=== PATIENT | male | born 1965 | race Caucasian/White ===

== ENCOUNTER 2017-01-08 13:36 | Emergency (ER) | payer BC, OTHER ==
[2017-01-08 14:14] VITALS: BP 120/84
[2017-01-08] MEDS ORDERED: Ketorolac 60 MG/2 ML SDV IM ONE (14:39)
--- NOTE | 2017-01-08 14:39 | EDM.PDOC ---
ED HPI GENERAL MEDICAL PROBLEM - General Chief Complaint: Back Pain or Injury Stated Complaint: LOWER BACK PAIN Time Seen by Provider: 01/08/17 14:27 Source of Information: Reports: Patient History Limitations: Reports: No Limitations - History of Present Illness INITIAL COMMENTS - FREE TEXT/NARRATIVE: HISTORY AND PHYSICAL: []51-year-old male presenting with back pain 07/25 History of Present Illness: []Patient history of back pain was had bulging disks at L4-5 and at L5-S1 discs a year ago (May 2016 )1 week ago (12/31)fell on the ice irritating this area He brings with him copy of recent MRI L-spine that was completed at [facility] on January 06, 2017 Results identify vertebral bodies with normal height and alignment no evidence of compression deformity. An ominous osseous mass is not identified L1-L2 normal L2-L3 normal L 3 L4 normal L4-L5: The disc space is moderately narrowed and desiccated. The central canal is obliterated by extruded disc. The neural for amenorrhea are only mildly narrowed by bulging disc L5-S1: The disc space is moderately narrowed and desiccated. Posterior canal, extending to the left lateral recess appreciate a roughly 6 mm disc extrusion which moderately impinges upon the thecal sac. The neural foramina are only mildly narrowed by protruding disc. The cauda equina is present at L1 nerve roots appear unremarkable; I see no evidence of clubbing or a mass. There is no evidence of paraspinal mass abdominal aorta is normal in caliber. Patient denies any difficulty with urination or with bowel movements although states that he is having more difficulty with constipation Review of Systems: As per history of present illness and below otherwise all systems reviewed and negative. Past medical history: As per history of present illness and as reviewed below otherwise noncontributory. Surgical history: As per history of present illness and as reviewed below otherwise noncontributory. Social history: No reported history of drug or alcohol abuse. Family history: As per history of present illness and as reviewed below otherwise noncontributory. Physical exam: Alert and oriented male answering questions in full sentences without any shortness of breath he is obviously uncomfortable. And is requesting a refill of his hydrocodone and some tramadol he has an appointment with Dr. Mariano neurosurgeon at on Wednesday01/11/17 HEENT: Atraumatic, normocehpalic, pupils reactive, negative for conjunctival pallor or scleral icterus, mucous membranes moist, throat clear, neck supple, nontender, trachea midline. Lungs: Clear to auscultation, breath sounds equal bilaterally, chest non tender. Heart: S1S2, regular, negative for clicks, rubs, or JVD. Abdomen: Soft, nondistended, nontender. Negative for masses or hepatossplenmegaly. Negative for costovertebral tenderness. Pelvis: Stable nontender. Genitourinary: Deferred. Rectal: Deferred Extremities: Atraumatic, negative for cords or calf pain. Neurovascular unremarkable. Neuro: Awake, alert, oriented. Cranial nerves II through XII unremarkable. Cerebellum unremarkable. Motor and sensory unremarkable throughout. Exam nonfocal. Diagnostics: [] Therapeutics: [Toradol 60 mg IM] Impression: [Lower back pain with large disc extrusion L4-L5] Plan: [Discharged to home Tramadol can be ordered addition to the hydrocodone that he has. 8 tablets are present in his current prescription. ] Definitive disposition and diagnosis as appropriate pending reevaluation and review of above. Onset: Sudden, Gradual Left Lower Back Pain Score (Numeric/FACES): 8 - Related Data Allergies Allergy/AdvReac Type Severity Reaction Status Date / Time Penicillins Allergy Anaphylactic Verified 01/08/17 14:02 Shock Home Meds: Home Meds Cyclobenzaprine HCl 10 mg PO TID PRN 01/08/17 [History] Diclofenac Sodium [Voltaren] 75 mg PO BIDMEALS 01/08/17 [History] Hydrocodone/Acetaminophen [Hydrocodon-Acetaminophn 10-325] 1 tab PO TID PRN [History] methylPREDNISolone [Medrol] 4 mg PO ASDIRECTED #1 dosepk 01/08/17 [Rx] traMADol HCl [Tramadol HCl] 50 mg PO Q6H PRN #10 tablet 01/08/17 [Rx] Past Medical History HEENT History: Reports: None Cardiovascular History: Reports: None Respiratory History: Reports: None Gastrointestinal History: Reports: None Genitourinary History: Reports: None Musculoskeletal History: Reports: None Neurological History: Reports: None Psychiatric History: Reports: None Endocrine/Metabolic History: Reports: None Hematologic History: Reports: None Immunologic History: Reports: None Oncologic (Cancer) History: Reports: None Dermatologic History: Reports: None - Infectious Disease History Infectious Disease History: Reports: Chicken Pox - Past Surgical History Head Surgeries/Procedures: Reports: None HEENT Surgical History: Reports: Tonsillectomy Dermatological Surgical History: Reports: None Social & Family History - Family History Family Medical History: Noncontributory - Tobacco Use Smoking Status *Q: Current Every Day Smoker Years of Tobacco use: 10 Packs/Tins Daily: 0.5 Used Tobacco, but Quit: No Second Hand Smoke Exposure: Yes - Caffeine Use Caffeine Use: Reports: Coffee Caffeine Use Comment: 5-6 cups avg - Recreational Drug Use Recreational Drug Use: No ED ROS GENERAL - Review of Systems Review Of Systems: ROS reveals no pertinent complaints other than HPI. ED EXAM,LOWER BACK PAIN/INJURY - Physical Exam Exam: See Below (see dictation) Course - Vital Signs Last Recorded V/S: Last Vital Signs Temp 36.1 C 01/08/17 14:07 Pulse 114 H 01/08/17 14:07 Resp 16 01/08/17 14:07 BP 120/84 01/08/17 14:07 Pulse Ox 16 L 01/08/17 14:07 - Orders/Labs/Meds Meds: Medications Discontinued Medications Generic Name Dose Route Start Last Admin Trade Name Freq PRN Reason Stop Dose Admin Ketorolac Tromethamine 60 mg 01/08/17 14:39 Toradol IM 01/08/17 14:40 ONETIME ONE Departure - Departure Time of Disposition: 14:41 Disposition: Home, Self-Care 01 Condition: Good Clinical Impression: Back pain at L4-L5 level - Discharge Information Prescriptions: methylPREDNISolone [Medrol] 4 mg PO ASDIRECTED #1 dosepk traMADol HCl [Tramadol HCl] 50 mg PO Q6H PRN #10 tablet PRN Reason: Pain (Moderate 4-6) Instructions: Back Injury Prevention, [id number], Back Pain, Adult, Easy-to- Read Referrals: Yaritza Littlejohn NP [Primary Care Provider] - Forms: ED Department Discharge Additional Instructions: The following information is given to patients seen in the emergency department who are being discharged to home. This information is to outline your options for follow-up care. We provide all patients seen in our emergency department with a follow-up referral. The need for follow-up, as well as the timing and circumstances, are variable depending upon the specifics of your emergency department visit. If you don't have a primary care physician on staff, we will provide you with a referral. We always advise you to contact your personal physician following an emergency department visit to inform them of the circumstance of the visit and for follow-up with them and/or the need for any referrals to a consulting specialist. The emergency department will also refer you to a specialist when appropriate. This referral assures that you have the opportunity for followup care with a specialist. All of these measure are taken in an effort to provide you with optimal care, which includes your followup. Under all circumstances we always encourage you to contact your private physician who remains a resource for coordinating your care. When calling for followup care, please make the office aware that this follow-up is from your recent emergency room visit. If for any reason you are refused follow-up, please contact the [facility] emergency department at and asked to speak to the emergency department charge nurse. Discharge to home Written prescriptions for hydrocodone/APAP 10/325 1 tablet 3 times a day when necessary pain number of 5 without any refill New prescription for tramadol 50 mg 1 every 6 hours as needed for pain #10 with no refill Medrol Dosepak has been sent to your pharmacy electronically Keep appointment with Dr. Mariano as scheduled for Wednesday, January 11, 2017
== END 2017-01-08 15:47 | disposition home or self-care (01) ==
LOC: MW.ED 13:36
DX: M51.26 Other intervertebral disc displacement, lumbar region (principal); F17.210 Nicotine dependence, cigarettes, uncomplicated; Z88.0 Allergy status to penicillin
CPT/HCPCS: 96372; 99283; J1885; 99284

== ENCOUNTER 2022-04-17 06:09 | Emergency (ER) | payer BC ==
[2022-04-17] MEDS ORDERED: Sodium Chloride 0.9% 1,000 ML IV ONE (06:45)
[2022-04-17 07:36] LABS: CARBON DIOXIDE,CO2 25.2 mmol/L (21.0-32.0)
[2022-04-17 07:59] VITALS: BP 129/74; PULSE 79
== END 2022-04-17 07:59 | disposition home or self-care (01) ==
LOC: MW.ED 06:09
DX: R19.7 Diarrhea, unspecified (principal); R11.2 Nausea with vomiting, unspecified; Z88.0 Allergy status to penicillin; Z72.0 Tobacco use
CPT/HCPCS: 36415; 80053; 85025; 87324; 96360; 99284; J7030; 99283

== ENCOUNTER 2022-04-17 14:13 | Emergency (ER) | payer BC ==
[2022-04-17] MEDS ORDERED: Iopamidol 755 MG/ML 500 ML Multipack Bottle IVPUSH ONE (14:55)
[2022-04-17 15:28] LABS: CARBON DIOXIDE,CO2 22.5 mmol/L (21.0-32.0); POTASSIUM,K 3.6 mmol/L (3.5-5.1)
[2022-04-17 16:52] VITALS: BP 119/78; PULSE 76
== END 2022-04-17 16:50 | disposition home or self-care (01) ==
LOC: MW.ED 14:13
DX: R10.31 Right lower quadrant pain (principal); Z88.0 Allergy status to penicillin
CPT/HCPCS: 36415; 74177; 80053; 83605; 83690; 85025; 99285; Q9967

== ENCOUNTER 2023-02-20 12:41 | Emergency (ER) | payer BC ==
[2023-02-20 14:15] VITALS: BP 119/76; PULSE 82
== END 2023-02-20 14:14 | disposition home or self-care (01) ==
LOC: MW.ED 12:41
DX: S62.521A Displaced fracture of distal phalanx of right thumb, initial encounter for closed fracture (principal); Z88.0 Allergy status to penicillin; W22.8XXA Striking against or struck by other objects, initial encounter
CPT/HCPCS: 73130-26-RT; 73130-RT; 99283